=== PATIENT | female | born 1985 | race Hispanic/Latino ===

== ENCOUNTER 2020-07-03 04:05 | Observation (INO) | payer OTHER ==
[~2020-07-03] VITALS: Ht 172.7 cm; Wt 156.2 kg
[2020-07-03 04:26] LABS: APPEARANCE,URINE CLEAR (CLEAR); BILIRUBIN,URINE NEGATIVE (NEGATIVE); COLOR,URINE YELLOW (YELLOW); GLUCOSE, URINE (UA) NEGATIVE (NEGATIVE); KETONES,URINE NEGATIVE (NEGATIVE); LEUKOCYTE ESTERASE ,URINE NEGATIVE (NEGATIVE); NITRATE,URINE NEGATIVE (NEGATIVE); OCCULT BLOOD,URINE MODERATE (NEGATIVE); PROTEIN,URINE 100 mg/dL (NEGATIVE); UROBILINOGEN,URINE 0.2 mg/dL (0.2-1.0)
[2020-07-03 04:34] LABS: BASOPHILS % (AUTO) 0.5 % (0.0-5.0); EOSINOPHILS % (AUTO) 1.7 % (0.0-8.0); HEMATOCRIT 43.8 % (36-48); LYMPHOCYTES % (AUTO) 34.5 % (21.0-51.0); MEAN CORPUSCULAR HEMOGLOBIN 28.4 pg (27.0-33.0); MEAN CORPUSCULAR HGB CONC 32.2 g/dL (32.0-36.0); MEAN CORPUSCULAR VOLUME 88.3 fL (79-99); MONOCYTES % (AUTO) 9.3 % (3.0-13.0); NEUTROPHILS % (AUTO) 53.7 % (40.0-77.0); PLATELET COUNT (AUTO) 238 K/uL (130-400); RED BLOOD CELL COUNT(AUTO) 4.96 MIL/uL (4.00-5.50); WHITE BLOOD COUNT (AUTO) 7.7 K/uL (4.8-10.8)
[2020-07-03 04:34] LABS: BACTERIA,URINE Rare /HPF (None Seen); MUCUS,URINE Few LPF (None Seen); SQUAMOUS EPITHELIAL CELL,UR Moderate /HPF (0-2)
[2020-07-03 04:38] LABS: AMPHET/METH SCREEN,URINE NEGATIVE (NEGATIVE); BARBITURATE SCREEN, URINE NEGATIVE (NEGATIVE); BENZODIAZEPINES SCREEN,URINE NEGATIVE (NEGATIVE); CANNABINOID SCREEN,URINE NEGATIVE (NEGATIVE); COCAINE SCREEN,URINE NEGATIVE (NEGATIVE); OPIATE SCREEN,URINE NEGATIVE (NEGATIVE); PHENCYCLIDINE SCREEN,URINE NEGATIVE (NEGATIVE)
[2020-07-03 04:43] LABS: CREATININE 0.9 mg/dL (0.5-1.5); POTASSIUM 3.5 mmol/L (3.5-5.1)
[2020-07-03 04:49] LABS: ALBUMIN 3.7 g/dL (3.5-5.0); BILIRUBIN,TOTAL 0.6 mg/dL (0.2-1.0); TOTAL PROTEIN, SERUM 8.1 g/dL (6.0-8.3)
[2020-07-03 05:01] LABS: INR 0.9 (0.85-1.15); PARTIAL THROMBOPLASTIN TIME 28.9 SEC (26.3-35.5); PROTHROMBIN TIME 9.8 SEC (9.6-11.6)
[2020-07-03] MEDS ORDERED: ASPIRIN 325 MG TABLET ONE (05:41)
[2020-07-03] MEDS ORDERED: ONDANSETRON HCL 4 MG/2 ML VIAL IVP PRN (07:00)
[2020-07-03] MEDS ORDERED: ACETAMINOPHEN 325 MG TAB PO PRN (07:00)
[2020-07-03 07:55] LABS: CHOLESTEROL 198 mg/dL (<200); HDL CHOLESTEROL 55 mg/dL (35-85); LDL DIRECT 121 mg/dL (0-99); TRIGLYCERIDES 101 mg/dL (30-200)
[2020-07-03 07:56] LABS: HEMOGLOBIN A1C 6.4 % (4.0-6.0)
[2020-07-03] MEDS: ASPIRIN 81MG TAB.CHEW PO SCH (09:00)
[2020-07-03] MEDS ORDERED: ASPIRIN 81MG TAB.CHEW ONE (09:02)
[2020-07-03] MEDS ORDERED: IBUPROFEN 600 MG TABLET ONE (10:56)
[2020-07-03] MEDS: METOPROLOL TARTRATE 25 MG TAB PO SCH ×2 (10:56→21:00)
[2020-07-03] MEDS ORDERED: IBUPROFEN 600 MG TABLET PO PRN (11:00)
--- NOTE | 2020-07-03 16:15 | NUR ---
EMMY MCKNIGHT Spoke to patient via phone. As per patient, She lives at address listed on file with family. She was independent with ADLs before this admission. No DME or services reported. Patient states her sister Amna Jerry ([phone]) is to transport her upon discharge. CM to follow up. Addendum: 07/03/20 at 1619 by SHERYL TINEO Amended: Links added.
[2020-07-03] MEDS ORDERED: ATORVASTATIN CALCIUM 20 MG TABLET PO SCH (21:00)
[2020-07-03] MEDS ORDERED: METOPROLOL TARTRATE 25 MG TAB ONE (22:22)
[2020-07-03] MEDS ORDERED: ATORVASTATIN CALCIUM 20 MG TABLET ONE (22:22)
[2020-07-04 02:40] VITALS: BP 153/87
--- NOTE | 2020-07-04 02:45 | NUR ---
ADMIT NOTE RECEIVED ED REPORT FROM MK FELICIANO. PT ARRIVED TO FLOOR AT 0240. PT A/A/OX3. PT AMBULATED W/O DIFFICULTY TO BED. HANDBAG FINISHER APPLIED. NO C/O OF CHEST PAIN OR DYSPNEA. IV TO RIGHT FA FLUSHED AND SALINE LOCKED. SEE INTERVENTIONS FOR PA. ADMISSION PAPERWORK SIGNED AND PLACED IN CHART.
[2020-07-04 04:10] LABS: BASOPHILS % (AUTO) 0.5 % (0.0-5.0); EOSINOPHILS % (AUTO) 1.6 % (0.0-8.0); HEMATOCRIT 39.1 % (36-48); LYMPHOCYTES % (AUTO) 35.9 % (21.0-51.0); MEAN CORPUSCULAR HEMOGLOBIN 28.2 pg (27.0-33.0); MEAN CORPUSCULAR HGB CONC 31.7 g/dL (32.0-36.0); MEAN CORPUSCULAR VOLUME 88.9 fL (79-99); MONOCYTES % (AUTO) 8.6 % (3.0-13.0); NEUTROPHILS % (AUTO) 53.4 % (40.0-77.0); PLATELET COUNT (AUTO) 238 K/uL (130-400); RED CELL DISTRIBUTION WIDTH 13.1 % (11.0-15.5); WHITE BLOOD COUNT (AUTO) 6.1 K/uL (4.8-10.8)
[2020-07-04 04:20] LABS: CREATININE 0.9 mg/dL (0.5-1.5); POTASSIUM 3.6 mmol/L (3.5-5.1)
--- NOTE | 2020-07-04 05:30 | NUR ---
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 [place] RJASON FNP. JASON ORDERED FOR PT TO BE PLACED ON A HYPOKALCEMIA PROTOCOL. ORDERS PLACED IN [facility]
[2020-07-04] MEDS ORDERED: POTASSIUM CHLORIDE 20MEQ/100ML 100 ML IV PRN (05:45)
[2020-07-04] MEDS ORDERED: LIDOCAINE HCL-MPF 1% 2ML VIAL IV PRN (05:45)
[2020-07-04] MEDS ORDERED: POTASSIUM CHLORIDE 10% ELIXIR 20 MEQ/15 ML UDCUP PO PRN (05:45)
[2020-07-04] MEDS: POTASSIUM CHLORIDE 20 MEQ ERTAB PO PRN ×2 (06:24→17:40)
[2020-07-04 07:30] VITALS: BP 131/67
[2020-07-04] MEDS: PHARMACY COMMUNICATION MISC SCH ×3 (08:00→15:47)
[2020-07-04] MEDS: METOPROLOL TARTRATE 25 MG TAB PO SCH ×2 (08:56→19:13)
[2020-07-04] MEDS: ASPIRIN 81MG TAB.CHEW PO SCH (08:57)
--- NOTE | 2020-07-04 09:54 | NUR ---
DR IRASEMA VILLALPANDO ROUNDED ON PATIENT PER HIS SERVICE PATIENT MAY BE DISCHARGE
[2020-07-04 11:00] VITALS: BP 131/86
[2020-07-04 16:00] VITALS: BP 142/84
--- NOTE | 2020-07-04 19:15 | NUR ---
DISCHARGE INSTRUCTIONS PATIENT GIVEN DISCHARGE INSTRUCTIONS AND VERBALIZED UNDERSTANDING , INSTRUCTED ON MEDICATIONS FOR BLOOD PRESSURE , FOLLOW-UP APPOINTMENT WITH HER PRIMARY PHYSICIAN , AND IMPORTANCE OF MONITORING HER BLOOD PRESSURE AND KEEPING A DAILY LOG TO REPORT TO HER PHYSICIAN. PATIENT DENIES PAIN AT THIS TIME AND VOICES NO CONCERNS OR QUESTIONS . IV REMOVED WITH CATHETER INTACT AND SITE DRESSED. PATIENT CALL AND IS NOW WAITING FOR HER RIDE HOME
== END 2020-07-04 19:37 | disposition home or self-care (01) ==
LOC: EDH 04:05 → EDHIP 06:45 → 3BH 07-04 02:19
PROVIDERS: ADMIT Hospitalist; ATTEND Hospitalist
DX: R07.89 Other chest pain (principal); E66.01 Morbid (severe) obesity due to excess calories; M54.12 Radiculopathy, cervical region; Z68.44 Body mass index [BMI] 60.0-69.9, adult
CPT/HCPCS: 36415 ×2; 70450; 70551; 71045; 72141; 80048; 80053; 80061; 80305; 81001; 82550; 83036; 83721; 84484 ×4; 85025 ×2; 85610; 85730; 93005; 93306; 93356; 99285; G0378 ×19

== ENCOUNTER → 2021-02-20 | Outpatient (CLI) | payer OTHER | END | disposition home or self-care (01) | LOC: SHCH 07:54 | PROVIDERS: ATTEND Internal Medicine Cardiovascular Disease | DX: I65.23 Occlusion and stenosis of bilateral carotid arteries (principal) | CPT/HCPCS: 93880 ==

== ENCOUNTER → 2021-10-21 | Outpatient (CLI) | payer OTHER | END | disposition home or self-care (01) | LOC: OIH 10:35 | PROVIDERS: ATTEND Internal Medicine Cardiovascular Disease | DX: Z13.6 Encounter for screening for cardiovascular disorders (principal) | CPT/HCPCS: 75571 ==